=== PATIENT | female | born 1995 ===

== ENCOUNTER 2016-06-17 14:42 | Emergency (ER) | payer SELFPAY ==
[~2016-06-17] VITALS: Ht 165.1 cm; Wt 61.2 kg
== END 2016-06-17 15:45 | disposition short-term general hospital (02) ==
LOC: ER 14:42
DX: S93.401A Sprain of unspecified ligament of right ankle, initial encounter (principal); S80.01XA Contusion of right knee, initial encounter; X50.1XXA Overexertion from prolonged static or awkward postures, initial encounter; Z79.899 Other long term (current) drug therapy
CPT/HCPCS: J1885